=== PATIENT | female | born 1970 | race Caucasian/White ===

== ENCOUNTER → 2024-03-05 11:01 | Outpatient (REF) | payer OTHER, SELFPAY | LOC: WDC 11:01 | PROVIDERS: ATTENDING PHYSICIAN Specialist; FAMILY PHYSICIAN Family Medicine | DX: Z12.31 Encounter for screening mammogram for malignant neoplasm of breast (principal) | CPT/HCPCS: 77063; 77067 ==

== ENCOUNTER → 2025-03-20 11:27 | Outpatient (REF) | payer SELFPAY | LOC: RAD 11:27 | PROVIDERS: ATTENDING PHYSICIAN Nurse Practitioner Family; FAMILY PHYSICIAN Family Medicine | DX: M54.50 Low back pain, unspecified (principal) | CPT/HCPCS: 74176 ==